=== PATIENT | male | born 1985 | race Caucasian/White ===

== ENCOUNTER 2017-10-05 09:33 | Inpatient (IN) ==
[2017-10-05 10:22] LABS: Apearance,Urine CLEAR (Clear); Bilirubin,Urine Negative (Negative); Blood, Urine Moderate mg/dL (Negative); Glucose,Urine (UA) Negative (Negative); Ketones,Urine Negative (Negative); Mucus,Urine Occasional /LPF (Occasional); Nitrite,Urine Negative (Negative); Protein,Urine Negative; RBC,Urine 86 /HPF (0-4); Squamous Epithelial Cell,Urine Occasional /HPF (0-10); Urine Color Yellow (Yellow); Urine Specific Gravity 1.016 (1.001-1.035); Urine Urobilinogen < 2.0 EU/DL (0.2-1.0); WBC,Urine 4 /HPF (0-6)
[2017-10-05] MEDS ORDERED: ONDANSETRON 4 MG/2 ML VIAL IV STA (10:38)
[2017-10-05] MEDS ORDERED: SODIUM CHLORIDE 0.9% 1,000 ML IV STA (10:38)
[2017-10-05] MEDS ORDERED: ONDANSETRON ODT 4 MG TABLET PO ONE (11:15)
[2017-10-05] MEDS ORDERED: ONDANSETRON ODT 4 MG TABLET PO STA (11:17)
[2017-10-05 11:31] LABS: Basophils # 0.1 10*3/uL (0.0-0.2); Basophils % 0.9 % (0.0-0.8); Eosinophils # 0.1 10*3/uL (0.0-0.87); Eosinophils % 1.3 % (0.00-10.9); Hematocrit 49.8 VOL% (42.0-52.0); Hemoglobin 16.1 GM/DL (14.0-18.0); Immature Granulocytes % 0.3 %; Immature Granulocytes Absolute 0.02 #; Lymphocytes # 1.8 10*3/uL (1.4-4.0); Lymphocytes % 22.6 % (21.2-54.2); Mean Corpuscular HGB Conc 32.3 GM/DL (32-36); Mean Corpuscular Hemoglobin 27 PG (27-34); Mean Corpuscular Volume 83.4 FL (87-102); Mean Platelet Volume 9.7 FL (9.6-12.0); Monocytes # 0.7 10*3/uL (0.11-0.8); Monocytes % 8.5 % (1.7-12.7); Neutrophils # 5.2 10*3/uL (1.4-7.4); Neutrophils % 66.4 % (38.7-73.9); Platelet Count 277 T/CUMM (130-400); Red Blood Count 5.97 MC/CUMM (3.8-5.5); Red Cell Distribution Width 12.7 % (9.3-17.3); White Blood Count 7.8 T/CUMM (4-12)
[2017-10-05 11:56] LABS: Albumin 4.5 G/DL (3.4-5.0); Bilirubin,Total 0.5 MG/DL (0.2-1.0); Potassium 4.4 MMOL/L (3.5-5.1)
[2017-10-05] MEDS ORDERED: KETOROLAC 30 MG/1 ML VIAL IM STA (13:59)
[2017-10-05] MEDS ORDERED: KETOROLAC 30 MG/1 ML VIAL ONE (14:03)
[2017-10-05] MEDS ORDERED: hydrALAZINE 20 MG/1 ML VIAL IV PRN (14:40)
[2017-10-05] MEDS ORDERED: ONDANSETRON 4 MG/2 ML VIAL IV PRN (15:03)
[2017-10-05] MEDS ORDERED: HYDROmorphone 2 MG/1 ML VIAL IV PRN (15:03)
[2017-10-05] MEDS: SODIUM CHLORIDE 0.9% 1,000 ML IV SCH ×2 (15:20→22:29)
[2017-10-05] MEDS ORDERED: ENOXAPARIN 30 MG/0.3 ML SYRINGE SUBCUT SCH (17:00)
[2017-10-05] MEDS: PANTOPRAZOLE 40 MG VIAL IV SCH (17:36)
[2017-10-05] MEDS ORDERED: cefTRIAXone 1,000 MG in SYRINGE 1 EACH IV ONE (17:49)
[2017-10-05] MEDS: TAMSULOSIN 0.4 MG CAPSULE PO SCH (21:00)
[2017-10-05] MEDS: QUEtiapine 100 MG TABLET PO SCH (22:28)
[2017-10-06] MEDS: SODIUM CHLORIDE 0.9% 1,000 ML IV SCH ×4 (03:30→21:56)
[2017-10-06 05:23] LABS: Basophils # 0.1 10*3/uL (0.0-0.2); Basophils % 0.8 % (0.0-0.8); Eosinophils # 0.2 10*3/uL (0.0-0.87); Eosinophils % 2.8 % (0.00-10.9); Hematocrit 42.3 VOL% (42.0-52.0); Hemoglobin 13.7 GM/DL (14.0-18.0); Immature Granulocytes % 0.2 %; Immature Granulocytes Absolute 0.01 #; Lymphocytes # 2.4 10*3/uL (1.4-4.0); Lymphocytes % 39.3 % (21.2-54.2); Mean Corpuscular HGB Conc 32.4 GM/DL (32-36); Mean Corpuscular Hemoglobin 27 PG (27-34); Mean Corpuscular Volume 82.9 FL (87-102); Mean Platelet Volume 9.8 FL (9.6-12.0); Monocytes # 0.6 10*3/uL (0.11-0.8); Neutrophils # 2.8 10*3/uL (1.4-7.4); Neutrophils % 46.9 % (38.7-73.9); Platelet Count 226 T/CUMM (130-400); Red Cell Distribution Width 12.7 % (9.3-17.3)
[2017-10-06 05:57] LABS: Risk Ratio 5.46; VLDL CHOLESTEROL 44.4 MG/DL
[2017-10-06 06:02] LABS: Calcium 8.5 MG/DL (8.5-10.1); Osmolality,Calculated 282.1 MOS/KG (273-304); Potassium 4.3 MMOL/L (3.5-5.1); Thyroid Stimulating Hormone 26.3 uIU/ml (0.358-3.74)
[2017-10-06] MEDS ORDERED: OXcarbazepine 300 MG TABLET PO PRN (08:46)
[2017-10-06] MEDS: PANTOPRAZOLE 40 MG VIAL IV SCH (09:09)
[2017-10-06] MEDS: clonazePAM 0.5 MG TABLET PO SCH ×2 (09:10→21:54)
[2017-10-06] MEDS: FLUoxetine 20 MG CAPSULE PO SCH (09:10)
[2017-10-06] MEDS ORDERED: ENOXAPARIN 40 MG/0.4 ML SYRINGE SUBCUT SCH (17:00)
[2017-10-06] MEDS: QUEtiapine 100 MG TABLET PO SCH (21:54)
[2017-10-06] MEDS: TAMSULOSIN 0.4 MG CAPSULE PO SCH (21:54)
[2017-10-07] MEDS: SODIUM CHLORIDE 0.9% 1,000 ML IV SCH ×2 (03:01→08:03)
[2017-10-07] MEDS ORDERED: LEVOTHYROXINE 88 MCG TABLET PO SCH (06:30)
[2017-10-07] MEDS: PANTOPRAZOLE 40 MG VIAL IV SCH (08:03)
[2017-10-07] MEDS ORDERED: DIAZEPAM 5 MG TABLET PO ONE (08:16)
[2017-10-07] MEDS ORDERED: LACTATED RINGERS 1,000 ML IV SCH (08:30)
[2017-10-07] MEDS ORDERED: cefTRIAXone 1,000 MG VIAL ONE (10:26)
[2017-10-07] MEDS ORDERED: fentaNYL 100 MCG/2 ML VIAL ONE (12:07)
[2017-10-07] MEDS ORDERED: LIDOCAINE 2% TOP JELLY 5 ML TUBE TOP ONE (12:07)
[2017-10-07] MEDS ORDERED: SEVOFLURANE 1 UNIT/15 MINUTE INH ONE (12:07)
[2017-10-07] MEDS ORDERED: PROPOFOL 200 MG/20 ML VIAL IV ONE (12:07)
[2017-10-07] MEDS ORDERED: GLYCOPYRROLATE 0.4 MG/2 ML VIAL ONE (12:08)
[2017-10-07] MEDS ORDERED: MIDAZOLAM 2 MG/2 ML VIAL ONE (12:08)
[2017-10-07] MEDS ORDERED: ONDANSETRON 4 MG/2 ML VIAL ONE (12:08)
[2017-10-07] MEDS: FLUoxetine 20 MG CAPSULE PO SCH (12:54)
[2017-10-07] MEDS: clonazePAM 0.5 MG TABLET PO SCH (12:54)
[2017-10-07 14:49] VITALS: BP 131/75
[2017-10-11 14:35] LABS: Stone Source Passed Stone
== END 2017-10-07 15:25 | disposition home or self-care (01) | DRG 446 ==
LOC: N.ED 09:33 → N.EDINP 14:35 → N.2E 16:37
PROVIDERS: ADMIT Hospitalist; ATTEND Hospitalist